=== PATIENT | female | born 1960 | race Caucasian/White ===

== ENCOUNTER 2016-09-03 18:48 | Emergency (ER) | payer MEDICAID, OTHER ==
[~2016-09-03] VITALS: Ht 172.7 cm; Wt 47.7 kg
[~2016-09-03 18:48] MED LIST: NOCURR
[2016-09-03] MEDS ORDERED: PHEN-460 PO (19:01)
[2016-09-03] MEDS ORDERED: LISI10TA7 PO (19:01)
[2016-09-03] MEDS ORDERED: THIA100T8 PO (19:01)
[2016-09-03] MEDS ORDERED: METR500T4 PO (19:01)
[2016-09-03] MEDS ORDERED: LORA1TAB3 PO (19:01)
[2016-09-03] MEDS ORDERED: NACL1 PO (19:01)
[2016-09-03 19:07] LABS: GLUCOSE,POINT OF CARE 106 MG/DL (70-110)
[2016-09-03 20:05] VITALS: BP 114/80
== END 2016-09-03 20:10 | disposition home or self-care (01) ==
LOC: EMS 18:50
DX: G40.909 Epilepsy, unspecified, not intractable, without status epilepticus (principal); I11.0 Hypertensive heart disease with heart failure; I50.9 Heart failure, unspecified; J44.9 Chronic obstructive pulmonary disease, unspecified; I25.2 Old myocardial infarction; F17.210 Nicotine dependence, cigarettes, uncomplicated
CPT/HCPCS: 82962; 99283

== ENCOUNTER 2016-09-04 22:43 | Emergency (ER) | payer OTHER ==
[~2016-09-04] VITALS: Ht 172.7 cm; Wt 48.0 kg
[~2016-09-04 22:43] MED LIST changes: +LISI10TA7 PO; +LORA1TAB3 PO; +METR500T4 PO; +NACL1 PO; -NOCURR; +PHEN-460 PO; +THIA100T8 PO
[2016-09-04] MEDS ORDERED: DiphenhydrAMINE HCL 25 MG CAPSULE PO ONE (23:30)
[2016-09-05 00:10] VITALS: BP 122/81
== END 2016-09-05 00:13 | disposition home or self-care (01) ==
LOC: EMS 22:44
DX: L50.9 Urticaria, unspecified (principal); I11.0 Hypertensive heart disease with heart failure; I50.9 Heart failure, unspecified; J44.9 Chronic obstructive pulmonary disease, unspecified; I25.2 Old myocardial infarction; F17.210 Nicotine dependence, cigarettes, uncomplicated
CPT/HCPCS: 99282

== ENCOUNTER 2017-03-01 13:30 | Emergency (ER) | payer OTHER ==
[~2017-03-01] VITALS: Ht 162.6 cm; Wt 56.5 kg
[2017-03-01 16:45] VITALS: BP 141/85
== END 2017-03-01 17:36 | disposition home or self-care (01) ==
LOC: EMS 13:32
DX: R07.89 Other chest pain (principal); F10.20 Alcohol dependence, uncomplicated; M79.609 Pain in unspecified limb; I11.0 Hypertensive heart disease with heart failure; I50.9 Heart failure, unspecified; J44.9 Chronic obstructive pulmonary disease, unspecified; I25.2 Old myocardial infarction; F17.210 Nicotine dependence, cigarettes, uncomplicated; Z59.0 Homelessness
CPT/HCPCS: 71101; 82962; 93005; 99284